=== PATIENT | female | born 1945 | race Caucasian/White ===

== ENCOUNTER 2017-07-01 19:15 | Observation (INO) | payer BC ==
[~2017-07-01] VITALS: Ht 154.9 cm; Wt 55.9 kg
[~2017-07-01 19:15] MED LIST: ALBUAER19 INH; ASTN; FLUT0.0529 NAE; IRBE75TA2 PO; MOME220A3 INH; PANT1TAB3 PO
[2017-07-01] MEDS ORDERED: ONDANSETRON 8 MG/54 ML D5W IV STA (19:49)
[2017-07-01] MEDS ORDERED: SODIUM CHLORIDE 0.9% 1000ML 1,000 ML IV STA (19:49)
[2017-07-01] MEDS ORDERED: ALBU18002 INH (19:55)
[2017-07-01] MEDS ORDERED: IRBE1TAB50 PO (19:55)
[2017-07-01] MEDS ORDERED: PANT40TA2 PO (19:55)
[2017-07-01] MEDS ORDERED: ASMIN/30 INH (19:55)
[2017-07-01] MEDS ORDERED: FLNIN/ NAE (19:55)
[2017-07-01] MEDS ORDERED: MoRPHine SULFATE 4 MG/ML 1 ML CARP\\VIAL IV PRN (20:00)
[2017-07-01] MEDS ORDERED: ONDANSETRON INJ 8 MG in DEXTROSE 5% 50ML 50 ML IV STA (20:01)
[2017-07-01 20:04] LABS: BASO % 0.6 %; BASO ABS # 0.04 K/uL (0-0.2); EOS % 1.2 %; EOS ABS # 0.08 K/uL (0-0.5); HEMATOCRIT 39.4 % (37-47); HEMOGLOBIN 13.7 g/dL (12.0-16.0); IG# 0.02 K/uL (0.00-0.02); LYMPH % 24.8 %; LYMPH ABS # 1.71 K/uL (1.2-3.4); MEAN CELL VOLUME 91.4 fL (80-100); MEAN CORPUSCULAR HEMOGLOBIN 31.8 pg (25-34); MEAN CORPUSCULAR HGB CONC 34.8 g/dl (32-36); MEAN PLATELET VOLUME 10.6 fL (7.4-10.4); MONO ABS # 0.62 K/uL (0.11-0.59); NEUT % 64.1 %; NEUT ABS # 4.43 K/uL (1.4-6.5); PLATELET COUNT 263 K/uL (130-400); RED CELL DISTRIBUTION WIDTH CV 12.7 % (11.5-14.5); RED CELL DISTRIBUTION WIDTH SD 42.8 fL (36.4-46.3)
[2017-07-01] MEDS ORDERED: ONDANSETRON INJ 2 MG/ML 2 ML VIAL ONE (20:12)
--- NOTE | 2017-07-01 20:36 | DIAGNOSTIC IMAGING REPORT ---
CT SCAN OF THE BRAIN WITHOUT IV CONTRAST CLINICAL HISTORY: Change in mental status. COMPARISON STUDY: No priors. TECHNIQUE: Unenhanced axial CT scan of the brain is performed from the vertex to the skull base. A dose lowering technique was utilized adhering to the principles of ALARA. CT DOSE: 537.48 mGy.cm FINDINGS: Brain parenchyma: There are age-related involutional changes noting mild subcortical and periventricular microangiopathic change. There is no hemorrhage, mass effect, or evidence of acute territorial ischemia by CT criteria. Ritchie-white matter is preserved. No extra-axial fluid collection is seen. Ventricles, sulci, cisterns: Prominent secondary to involutional change. Cavum septum pellucidum is incidentally noted. Intracranial vasculature: There is atherosclerotic calcification of the cavernous carotid arteries. Foci of gas within the region of the cavernous sinuses are likely related to IV placement. Calvarium: Unremarkable. Sinuses and mastoids: The visualized paranasal sinuses are clear. The mastoid air cells are well pneumatized. Orbits: The bony orbits are grossly intact. IMPRESSION: There is no hemorrhage, mass effect, or evidence of acute territorial ischemia by CT criteria. Electronically signed by: Chris Irene M.D. 07/01/2017 8:35 PM Dictated Date/Time: 07/01/2017 8:33 PM
[2017-07-01 20:42] LABS: ALBUMIN 3.8 gm/dl (3.4-5.0); ALKALINE PHOSPHATASE 64 U/L (45-117); ALT/SGPT 22 U/L (12-78); BLOOD UREA NITROGEN 13 mg/dl (7-18); CALCIUM 8.5 mg/dl (8.5-10.1); CARBON DIOXIDE 19 mmol/L (21-32); CKMB 2.6 ng/ml (0.5-3.6); CREATININE 0.71 mg/dl (0.60-1.20); GLUCOSE 132 mg/dl (70-99); LIPASE 105 U/L (73-393); SODIUM 129 mmol/L (136-145); TOTAL PROTEIN 7.4 gm/dl (6.4-8.2)
[2017-07-01] MEDS ORDERED: PROCHLORPERAZINE 5 MG/ML 2 ML VIAL IV STA (20:48)
--- NOTE | 2017-07-01 20:48 | DIAGNOSTIC IMAGING REPORT ---
SINGLE VIEW CHEST CLINICAL HISTORY: Weakness. Change in mental status. FINDINGS: An AP, portable, upright chest radiograph is obtained. No prior studies are available for comparison at the time of dictation. The examination is degraded by portable technique and patient rotation. The heart is top normal for projection. The mediastinal contour is within normal limits. There is minimal bibasilar atelectasis. The lungs and pleural spaces are otherwise clear. No pneumothorax is seen. The skeletal structures are osteopenic. There is mild thoracic scoliosis. There are healed bilateral rib fractures. IMPRESSION: No acute cardiopulmonary abnormality. Electronically signed by: Chris Irene M.D. 07/01/2017 8:47 PM Dictated Date/Time: 07/01/2017 8:46 PM
[2017-07-01 20:53] LABS: INFLUENZA B ANTIGEN Neg for Influ B (NEG)
[2017-07-01] MEDS ORDERED: LORAZEPAM 2 MG/ML 1 ML VIAL IV STA (21:30)
[2017-07-01 21:41] LABS: INR 1.1 (0.9-1.1); PTT PATIENT 26.8 SECONDS (21.0-31.0)
[2017-07-01] MEDS ORDERED: ALUMINUM/MAGNESIUM/SIMETH (MAALOX MAX) 30 ML UDC PO PRN (21:45)
[2017-07-01] MEDS ORDERED: MAGNESIUM HYDROXIDE SUSP 30 ML UDC PO PRN (21:45)
[2017-07-01] MEDS ORDERED: FLUTICASONE PROPIONATE NA SPR 16 GM BTL NAE PRN (21:45)
[2017-07-01] MEDS ORDERED: POLYETHYLENE (MIRALAX) 17 GM PACK PO PRN (21:45)
[2017-07-01] MEDS ORDERED: ACETAMINOPHEN 325 MG TAB PO PRN (21:45)
[2017-07-01] MEDS ORDERED: SODIUM CHLORIDE 0.9% 1000ML 1,000 ML IV SCH (21:45)
[2017-07-01] MEDS ORDERED: ONDANSETRON INJ 2 MG/ML 2 ML VIAL IV PRN (21:45)
[2017-07-01] MEDS ORDERED: ALBUTEROL HFA 8 GM INHALER INH PRN (22:00)
[2017-07-01 22:11] LABS: POTASSIUM 3.3 mmol/L (3.5-5.1)
[2017-07-01] MEDS ORDERED: METOCLOPRAMIDE HCL INJ 5 MG/ML 2 ML VIAL IV. PRN (22:15)
--- NOTE | 2017-07-01 22:25 | History and Physical ---
History & Physical Date & Time of Service: Jul 01, 2017 at 22:09 Chief Complaint: Nausea Primary Care Physician: No Doctor, Assigned History of Present Illness Source: patient, family 71 y/o F Hx HTN, asthma, allergic dermatitis. Pt developed diarrhea which has persisted for 2 days. This evening she described either lower chest or epigastric tightness followed by nausea and several episodes of vomiting. She also describes a shaky feeling although she was not visibly rigorous or febrile. Her last meal was deep fried vegetables at a bar the previous evening. She does not have any CP at the time of evaluation for admission. She denies any SOB or fevers. Past Medical/Surgical History Medical Problems: (1) Hypertension Status: Chronic Family History Patient reports no known family medical history. Father owing to COPD Social History Smoking Status: Never Smoker Marital Status: Occupational Status: employed Allergies Coded Allergies: Amoxicillin (Verified Allergy, Unknown, Rash, 07/20/15) Reported by PT. Clavulanic Acid (Verified Allergy, Unknown, Rash, 07/20/15) Reported by PT. Home Medications Scheduled Irbesartan (Irbesartan), 300 MG PO DAILY Mometasone Furoate (Asmanex Twisthaler 30 Me), 1 INHA INH QPM Pantoprazole (Pantoprazole Sodium), 40 MG PO DAILY Scheduled PRN Albuterol Sulfate (Proair Respiclick), 2 PUFFS INH Q6H PRN for SOB/Wheezing Fluticasone Propionate (Fluticasone Propionate), 2 SPRAYS ALFREDITO DAILY PRN for Allergy Symptoms Review of Systems Constitutional: + chills, + problem reported ("shakiness"), No fever, No sweats Eyes: No worsening of vision ENT: No hearing loss, No nasal symptoms Respiratory: No cough, No sputum, No wheezing Cardiovascular: + chest pain (CGest or epigastric discomfort), No orthopnea, No PND Abdomen: + pain (epigastric), + nausea, + vomiting, + diarrhea Musculoskeletal: No joint pain Genitourinary - Female: No dysuria, No urinary frequency, No urinary urgency Neurologic: + weakness, No memory loss, No paralysis Psychiatric: No depression symptoms Endocrine: + fatigue Hematologic / Lymphatic: No abnormal bleeding/bruising Integumentary: + rash (Dermatitis over shoulders/upper chest - present for 2 weeks) Allergic / Immunologic: + environmental allergies Physical Exam Vital Signs Date Time Temp Pulse Resp B/P (MAP) Pulse Ox O2 Delivery O2 Flow Rate FiO2 07/01/17 21:51 Nasal Cannula 2.0 07/01/17 21:08 36.4 78 18 155/91 100 Room Air 07/01/17 19:42 81 07/01/17 19:30 36.4 91 18 178/93 Nasal Cannula 2.0 100 General Appearance: WD/WN, no apparent distress Head: normocephalic Eyes: normal inspection ENT: normal ENT inspection, pharynx normal Neck: supple, no JVD Respiratory/Chest: chest non-tender, lungs clear, normal breath sounds Cardiovascular: regular rate, rhythm, no edema, no gallop Abdomen/GI: normal bowel sounds, non tender, soft Back: normal inspection Extremities/Musculoskelatal: normal inspection, no calf tenderness, normal capillary refill Neurologic/Psych: medical assistant II-XII nml as tested, no motor/sensory deficits, alert, oriented x 3 Skin: normal color, warm/dry, no rash Diagnostics Laboratory Results Results Past 24 Hours Test 07/01/17 19:39 07/01/17 19:40 07/01/17 20:06 07/01/17 20:45 Range/Units Bedside Troponin I < 0.030 0-0.045 ng/ml White Blood Count 6.90 4.8-10.8 K/uL Red Blood Count 4.31 4.2-5.4 M/uL Hemoglobin 13.7 12.0-16.0 g/dL Hematocrit 39.4 37-47 % Mean Corpuscular Volume 91.4 80-100 fL Mean Corpuscular Hemoglobin 31.8 25-34 pg Mean Corpuscular Hemoglobin Concent 34.8 32-36 g/dl Platelet Count 263 130-400 K/uL Mean Platelet Volume 10.6 7.4-10.4 fL Neutrophils (%) (Auto) 64.1 % Lymphocytes (%) (Auto) 24.8 % Monocytes (%) (Auto) 9.0 % Eosinophils (%) (Auto) 1.2 % Basophils (%) (Auto) 0.6 % Neutrophils # (Auto) 4.43 1.4-6.5 K/uL Lymphocytes # (Auto) 1.71 1.2-3.4 K/uL Monocytes # (Auto) 0.62 0.11-0.59 K/uL Eosinophils # (Auto) 0.08 0-0.5 K/uL Basophils # (Auto) 0.04 0-0.2 K/uL RDW Standard Deviation 42.8 36.4-46.3 fL RDW Coefficient of Variation 12.7 11.5-14.5 % Immature Granulocyte % (Auto) 0.3 % Immature Granulocyte # (Auto) 0.02 0.00-0.02 K/uL Sodium Level 129 136-145 mmol/L Potassium Level 3.5-5.1 mmol/L Chloride Level 98 98-107 mmol/L Carbon Dioxide Level 19 21-32 mmol/L Anion Gap 12.0 3-11 mmol/L Blood Urea Nitrogen 13 7-18 mg/dl Creatinine 0.71 0.60-1.20 mg/dl Est Creatinine Clear Calc Drug Dose 60.6 ml/min Estimated GFR () 100.0 Estimated GFR (Non- 86.3 BUN/Creatinine Ratio 17.8 10-20 Random Glucose 132 70-99 mg/dl Calcium Level 8.5 8.5-10.1 mg/dl Magnesium Level 1.8-2.4 mg/dl Total Bilirubin 1.2 0.2-1 mg/dl Direct Bilirubin 0-0.2 mg/dl Aspartate Amino Transf (AST/SGOT) 15-37 U/L Alanine Aminotransferase (ALT/SGPT) 22 12-78 U/L Alkaline Phosphatase 64 45-117 U/L Total Creatine Kinase 26-192 U/L Creatine Kinase MB 2.6 0.5-3.6 ng/ml Creatine Kinase MB Ratio 0-3.0 Troponin I < 0.015 0-0.045 ng/ml Total Protein 7.4 6.4-8.2 gm/dl Albumin 3.8 3.4-5.0 gm/dl Lipase 105 73-393 U/L Thyroid Stimulating Hormone (TSH) 1.450 0.300-4.500 uIu/ml Influenza Type A Antigen Neg for Influ A NEG Influenza Type B Antigen Neg for Influ B NEG Urine Color YELLOW Urine Appearance CLEAR CLEAR Urine pH 8.0 4.5-7.5 Urine Specific [place] 1.012 1.000-1.030 Urine Protein NEG NEG Urine Glucose (UA) NEG NEG Urine Ketones TRACE NEG Urine Occult Blood NEG NEG Urine Nitrite NEG NEG Urine Bilirubin NEG NEG Urine Urobilinogen NEG NEG Urine Leukocyte Esterase NEG NEG Urine WBC (Auto) 0 0-5 /hpf Urine RBC (Auto) 0-4 0-4 /hpf Urine Hyaline Casts (Auto) 0 0-5 /lpf Urine Epithelial Cells (Auto) 5-10 0-5 /lpf Urine Bacteria (Auto) NEG NEG Test 07/01/17 20:56 Range/Units Prothrombin Time 12.0 9.0-12.0 SECONDS Prothromb Time International Ratio 1.1 0.9-1.1 Activated Partial Thromboplast Time 26.8 21.0-31.0 SECONDS Partial Thromboplastin Ratio 1.0 Microbiology Results 07/01/17 C.difficile Toxin B Gene (PCR) - Final, Complete No C. difficile toxin B gene detected EKG Sinus , prolonged QT , no evidence of ischemia Impression Assessment and Plan 71 y/o F Hx HTN, asthma, allergic dermatitis. Pt developed diarrhea which has persisted for 2 days. This evening she described either lower chest or epigastric tightness followed by nausea and several episodes of vomiting. She also describes a shaky feeling although she was not visibly rigorous or febrile. Her last meal was deep fried vegetables at a bar the previous evening. She does not have any CP at the time of evaluation for admission. She denies any SOB or fevers. 1) Intractable nausea and vomiting - pt placed on IVF with PRN antiemetics. This is more likely enteritis rather than cardiac related. She has been assigned to telemetry regardless. 2) CP or epigastric pain - she does not have significant risk factors for an MN - we will obtain serial troponins but would hold off on empirical ASA and Statins based on current clinical assessment. 3) Hyponatremia - related to diarrhea and vomiting - receiving fluids and will trend BMP 4) QT prolongation - we do not have full BMP results on admission. She is receiving a gram of Mg as she received antiemetics in the ER and K is placed in her IVF - we will correct her electrolytes as needed and monitor on telemetry. EKG will be repeated to determine if issue has corrected or if she needs eventual cardio follow-up 5) Asthma - cont inhaler as prescribed 6) Rash - allergic dermatitis - is following with her MD - mild and has not worsened Full code - SCDs until; vomiting/retching resolves - total time for this admit including review of labs, meds, EKG, records - discussion with pt and ER attending - 35 min Level of Care Telemetry Resuscitation Status FULL RESUSCITATION VTE Prophylaxis VTE Risk Assessment Done? Y/N: Yes Risk Level: Low Given or contraindicated: SCD's
[2017-07-01] MEDS ORDERED: IV FLUIDS COMPLETED PRN (23:30)
[2017-07-02 00:15] VITALS: BP 151/85; PULSE 76; TEMP 36.8; O2SAT 96; Ht 154.9 cm; Wt 55.9 kg
--- NOTE | 2017-07-02 00:37 | EMERGENCY ROOM VISIT NOTE ---
History Report prepared by Isabel: Marisa Fontanez Under the Supervision of: Dr. Remberto Holt D.O. First contact with patient: 19:42 Chief Complaint: SYNCOPE Stated Complaint: NAUSEA Nursing Triage Summary: pt c/o n/v/d for past week. states, I feel like I am going to pass out." History of Present Illness The patient is a 71 year old female who presents to the Emergency Room with complaints of an episode of syncope starting prior to arrival. The patient states that she has had a cough and congestion for a week. She reports that she started getting a headache yesterday that she has not been able to get rid of. She states that she has had diarrhea for two days. The patient reports that a few hours ago she started to become very nauseous and get a pain in the left side of her neck. She states that as her nausea increased, she became short of breath. She notes that at this time she called the ambulance. She states that on the way over she started vomiting and feeling like she is going pass out. She complains of feeling lightheaded and being very shaky. The patient denies loss of consciousness, abdominal pain, being around anyone who is sick, and recent antibiotic use. Source of History: patient Onset: prior to arrival Position: other (global) Quality: other (global) Timing: other (episode) Associated Symptoms: + headache, + cough, + neck pain, + SOB, + nausea, + vomiting, + diarrhea, No LOC, No abdominal pain Note: The patient complains of congestion, being lightheaded, and being shaky. Review of Systems See HPI for pertinent positives & negatives. A total of 10 systems reviewed and were otherwise negative. Past Medical & Surgical Medical Problems: (1) Hypertension (2) Hyponatremia (3) Intractable vomiting Family History Patient reports no known family medical history. Social History Smoking Status: Never Smoker Marital Status: Housing Status: lives with family Occupation Status: employed Current/Historical Medications Scheduled Irbesartan (Irbesartan), 300 MG PO DAILY Mometasone Furoate (Asmanex Twisthaler 30 Me), 1 INHA INH QPM Pantoprazole (Pantoprazole Sodium), 40 MG PO DAILY Scheduled PRN Albuterol Sulfate (Proair Respiclick), 2 PUFFS INH Q6H PRN for SOB/Wheezing Fluticasone Propionate (Fluticasone Propionate), 2 SPRAYS ALFREDITO DAILY PRN for Allergy Symptoms Allergies Coded Allergies: Amoxicillin (Verified Allergy, Unknown, Rash, 07/20/15) Reported by PT. Clavulanic Acid (Verified Allergy, Unknown, Rash, 07/20/15) Reported by PT. Physical Exam Vital Signs Date Time Temp Pulse Resp B/P (MAP) Pulse Ox O2 Delivery O2 Flow Rate FiO2 07/01/17 21:51 Nasal Cannula 2.0 07/01/17 21:08 36.4 78 18 155/91 100 Room Air 07/01/17 19:42 81 07/01/17 19:30 36.4 91 18 178/93 Nasal Cannula 2.0 100 Physical Exam CONSTITUTIONAL/VITAL SIGNS: Reviewed / noted above. GENERAL: Non-toxic in appearance. INTEGUMENTARY: Warm, dry, and [place]. HEAD: Normocephalic. EYES: without scleral icterus or trauma. No photophobia. ENT/OROPHARYNX: clear and moist. LYMPHADENOPATHY/NECK: Is supple without lymphadenopathy or meningismus. RESPIRATORY: Lungs clear and equal. CARDIOVASCULAR: Regular rate and rhythm. GI/ABDOMEN: Soft and nontender. No organomegaly or pulsatile mass. No rebound or guarding. Normal bowel sounds. EXTREMITIES: Warm and well perfused. BACK: No CVA tenderness. NEUROLOGICAL: Intact without focal deficits. PSYCHIATRIC: normal affect. MUSCULOSKELETAL: Normally developed with good muscle tone. Medical Decision & Procedures ER Provider Diagnostic Interpretation: Radiology results as stated below per my review and radiologist interpretation: SINGLE VIEW CHEST CLINICAL HISTORY: Weakness. Change in mental status. FINDINGS: An AP, portable, upright chest radiograph is obtained. No prior studies are available for comparison at the time of dictation. The examination is degraded by portable technique and patient rotation. The heart is top normal for projection. The mediastinal contour is within normal limits. There is minimal bibasilar atelectasis. The lungs and pleural spaces are otherwise clear. No pneumothorax is seen. The skeletal structures are osteopenic. There is mild thoracic scoliosis. There are healed bilateral rib fractures. IMPRESSION: No acute cardiopulmonary abnormality. Electronically signed by: Chris Irene M.D. 07/01/2017 8:47 PM Dictated Date/Time: 07/01/2017 8:[address] SCAN OF THE BRAIN WITHOUT IV CONTRAST CLINICAL HISTORY: Change in mental status. COMPARISON STUDY: No priors. TECHNIQUE: Unenhanced axial CT scan of the brain is performed from the vertex to the skull base. A dose lowering technique was utilized adhering to the principles of ALARA. CT DOSE: 537.48 mGy.cm FINDINGS: Brain parenchyma: There are age-related involutional changes noting mild subcortical and periventricular microangiopathic change. There is no hemorrhage, mass effect, or evidence of acute territorial ischemia by CT criteria. Ritchie-white matter is preserved. No extra-axial fluid collection is seen. Ventricles, sulci, cisterns: Prominent secondary to involutional change. Cavum septum pellucidum is incidentally noted. Intracranial vasculature: There is atherosclerotic calcification of the cavernous carotid arteries. Foci of gas within the region of the cavernous sinuses are likely related to IV placement. Calvarium: Unremarkable. Sinuses and mastoids: The visualized paranasal sinuses are clear. The mastoid air cells are well pneumatized. Orbits: The bony orbits are grossly intact. IMPRESSION: There is no hemorrhage, mass effect, or evidence of acute territorial ischemia by CT criteria. Electronically signed by: Chris Irene M.D. 07/01/2017 8:35 PM Dictated Date/Time: 07/01/2017 8:33 PM Laboratory Results 07/01/17 19:40 Red Blood Count 4.31, Mean Corpuscular Volume 91.4, Mean Corpuscular Hemoglobin 31.8, Mean Corpuscular Hemoglobin Concent 34.8, Mean Platelet Volume 10.6, Neutrophils (%) (Auto) 64.1, Lymphocytes (%) (Auto) 24.8, Monocytes (%) (Auto) 9.0, Eosinophils (%) (Auto) 1.2, Basophils (%) (Auto) 0.6, Neutrophils # (Auto) 4.43, Lymphocytes # (Auto) 1.71, Monocytes # (Auto) 0.62, Eosinophils # (Auto) 0.08, Basophils # (Auto) 0.04 07/01/17 19:40 07/01/17 20:56 Test 07/01/17 19:39 07/01/17 19:40 07/01/17 20:06 07/01/17 20:45 Bedside Troponin I < 0.030 ng/ml (0-0.045) White Blood Count 6.90 K/uL (4.8-10.8) Red Blood Count 4.31 M/uL (4.2-5.4) Hemoglobin 13.7 g/dL (12.0-16.0) Hematocrit 39.4 % (37-47) Mean Corpuscular Volume 91.4 fL (80-100) Mean Corpuscular Hemoglobin 31.8 pg (25-34) Mean Corpuscular Hemoglobin Concent 34.8 g/dl (32-36) Platelet Count 263 K/uL (130-400) Mean Platelet Volume 10.6 fL (7.4-10.4) Neutrophils (%) (Auto) 64.1 % Lymphocytes (%) (Auto) 24.8 % Monocytes (%) (Auto) 9.0 % Eosinophils (%) (Auto) 1.2 % Basophils (%) (Auto) 0.6 % Neutrophils # (Auto) 4.43 K/uL (1.4-6.5) Lymphocytes # (Auto) 1.71 K/uL (1.2-3.4) Monocytes # (Auto) 0.62 K/uL (0.11-0.59) Eosinophils # (Auto) 0.08 K/uL (0-0.5) Basophils # (Auto) 0.04 K/uL (0-0.2) RDW Standard Deviation 42.8 fL (36.4-46.3) RDW Coefficient of Variation 12.7 % (11.5-14.5) Immature Granulocyte % (Auto) 0.3 % Immature Granulocyte # (Auto) 0.02 K/uL (0.00-0.02) Anion Gap 12.0 mmol/L (3-11) Est Creatinine Clear Calc Drug Dose 60.6 ml/min Estimated GFR () 100.0 Estimated GFR (Non- 86.3 BUN/Creatinine Ratio 17.8 (10-20) Calcium Level 8.5 mg/dl (8.5-10.1) Total Bilirubin 1.2 mg/dl (0.2-1) Alanine Aminotransferase (ALT/SGPT) 22 U/L (12-78) Alkaline Phosphatase 64 U/L (45-117) Creatine Kinase MB 2.6 ng/ml (0.5-3.6) Creatine Kinase MB Ratio (0-3.0) Total Protein 7.4 gm/dl (6.4-8.2) Albumin 3.8 gm/dl (3.4-5.0) Lipase 105 U/L (73-393) Thyroid Stimulating Hormone (TSH) 1.450 uIu/ml (0.300-4.500) Influenza Type A Antigen Neg for Influ A (NEG) Influenza Type B Antigen Neg for Influ B (NEG) Urine Color YELLOW Urine Appearance CLEAR (CLEAR) Urine pH 8.0 (4.5-7.5) Urine Specific [place] 1.012 (1.000-1.030) Urine Protein NEG (NEG) Urine Glucose (UA) NEG (NEG) Urine Ketones TRACE (NEG) Urine Occult Blood NEG (NEG) Urine Nitrite NEG (NEG) Urine Bilirubin NEG (NEG) Urine Urobilinogen NEG (NEG) Urine Leukocyte Esterase NEG (NEG) Urine WBC (Auto) 0 /hpf (0-5) Urine RBC (Auto) 0-4 /hpf (0-4) Urine Hyaline Casts (Auto) 0 /lpf (0-5) Urine Epithelial Cells (Auto) 5-10 /lpf (0-5) Urine Bacteria (Auto) NEG (NEG) Test 07/01/17 20:56 Prothrombin Time 12.0 SECONDS (9.0-12.0) Prothromb Time International Ratio 1.1 (0.9-1.1) Activated Partial Thromboplast Time 26.8 SECONDS (21.0-31.0) Partial Thromboplastin Ratio 1.0 Magnesium Level 1.7 mg/dl (1.8-2.4) Direct Bilirubin 0.2 mg/dl (0-0.2) Aspartate Amino Transf (AST/SGOT) 21 U/L (15-37) Total Creatine Kinase 83 U/L (26-192) Date/Time Source Procedure Growth Status 07/01/17 20:07 Stool C.difficile Toxin B Gene (PCR) - Final No C. difficile toxin B gene detected Complete Laboratory results as stated above per my review. Medications Administered Medications (Trade) Dose Ordered Sig/Haris Route Start Time Stop Time Status Last Admin Dose Admin Sodium Chloride 1,000 ml @ 999 mls/hr Q1H1M STAT IV 07/01/17 19:49 07/01/17 22:26 DC 07/01/17 20:16 999 MLS/HR Morphine Sulfate (MoRPHine SULFATE INJ) 4 mg Q1H PRN IV 07/01/17 20:00 07/01/17 22:29 DC 07/01/17 20:17 4 MG Ondansetron HCl (Zofran Inj) 8 mg STK-MED ONCE .ROUTE 07/01/17 20:12 07/01/17 20:13 DC 07/01/17 20:12 8 MG Prochlorperazine Edisylate (Compazine Inj) 10 mg NOW STAT IV 07/01/17 20:48 07/01/17 20:49 DC 07/01/17 21:01 10 MG Lorazepam (Ativan Inj) 1 mg NOW STAT IV 07/01/17 21:30 07/01/17 21:31 DC 07/01/17 21:44 1 MG ECG Indication: nausea Rate (beats per minute): 79 Rhythm: normal sinus Findings: no acute ischemic change, no ectopy ED Course 1942: Previous medical records were reviewed. The patient was evaluated in room A2. A complete history and physical examination was performed. 1948: Ordered NSS 1000 ml @ 999 mls/hr IV. 1999: Ordered Morphine Sulfate 4 mg PRN IV pain. 2000: Ordered Ondansetron HCl 8 mg/Dextrose 54 ml @ 216 mls/hr IV. 2039: I reevaluated the patient and she is still nauseous. 2047: Ordered Compazine Inj 10 mg IV. 2125: I reevaluated the patient and she is still feeling ill and nauseated. 2129: Ordered Ativan Inj 1 mg IV. 2142: Discussed the patient's case with Dr. Melton. The patient will be evaluated for further treatment and disposition. 2143: Patient's electrocardiogram interpreted by me. Medical Decision Differential includes acute coronary syndrome, myocardial infarction, CVA, TIA, anemia, infection, pneumonia, UTI, pyelonephritis, poor nutrition, dehydration, electrolyte disturbance,hypoglycemia. This is a 71-year-old female who presents to the ED with a chief complaint of having cough and congestion for the past week. She has had a headache for the past 24 hours in addition to some nausea. She has had vomiting. She has been unable to keep anything down. She is also reports diarrhea for 2 days. Initial vital signs reveal hypertension. Her physical exam was relatively unremarkable. She does appear somewhat ill he complains of nausea and generalized malaise. A twelve-lead EKG did not show acute ischemic process. Blood work including a CBC and chemistry panel revealed hyponatremia as well as hypokalemia and hypomagnesemia. Troponin was negative. Chest x-ray did not show acute process per CT scan of the brain did not show acute process. Urine did not show infection, flu so was negative. The patient was treated with several antinausea medications IV as well as IV Ativan. She was given IV fluids. She continued having nausea and the sensation of vomiting despite these treatments. The patient was not feeling well and because the intractable symptoms, the patient was seen by the hospitalist for further inpatient evaluation and care. Medication Reconcilliation Current Medication List: was personally reviewed by me Blood Pressure Screening Patient's blood pressure: Elevated blood pressure Blood pressure disposition: Elevated BP felt to be situational Consults Time Called: 2139 Consulting Physician: Dr. Melton- [facility] [place] Returned Call: 2142 Discussed the patient's case with Dr. Metlon. The patient will be evaluated for further treatment and disposition. Impression Primary Impression: Weak Additional Impressions: Hyponatremia Hypokalemia Intractable vomiting Scribe Attestation The scribe's documentation has been prepared under my direction and personally reviewed by me in its entirety. I confirm that the note above accurately reflects all work, treatment, procedures, and medical decision making performed by me. Departure Information Dispostion Being Evaluated By Hospitalist Referrals Fredrick De Jesus M.D. (PCP) Patient Instructions My [facility] Problem Qualifiers
[2017-07-02] MEDS: NSS + 20MEQ KCL 1000ML 1,000 ML IV SCH ×2 (01:58→09:02)
[2017-07-02] MEDS: POTASSIUM CHLR 10 MEQ / WTR 10 MEQ in PREMIXED WATER 100 ML IV SCH ×2 (01:59→04:01)
[2017-07-02] MEDS ORDERED: MAGNESIUM SULFATE 1GM / D5W 1 GM in PREMIXED IN D5W 100 ML IV SCH (02:00)
[2017-07-02 05:02] VITALS: BP 146/81; PULSE 74; TEMP 36.4; O2SAT 95
[2017-07-02 07:55] VITALS: BP 147/79; PULSE 73; TEMP 36.9; O2SAT 98
[2017-07-02] MEDS ORDERED: PANTOprazole SOD 40 MG TAB PO SCH (09:00)
[2017-07-02 09:12] LABS: HEMATOCRIT 39.1 % (37-47); HEMOGLOBIN 13.4 g/dL (12.0-16.0); MEAN CELL VOLUME 92.9 fL (80-100); MEAN CORPUSCULAR HEMOGLOBIN 31.8 pg (25-34); MEAN CORPUSCULAR HGB CONC 34.3 g/dl (32-36); MEAN PLATELET VOLUME 10.3 fL (7.4-10.4); PLATELET COUNT 259 K/uL (130-400); RED CELL DISTRIBUTION WIDTH CV 12.9 % (11.5-14.5); RED CELL DISTRIBUTION WIDTH SD 43.6 fL (36.4-46.3); WHITE BLOOD COUNT 8.41 K/uL (4.8-10.8)
[2017-07-02 09:25] LABS: CALCIUM 8.1 mg/dl (8.5-10.1); CREATININE 0.46 mg/dl (0.60-1.20); POTASSIUM 4.7 mmol/L (3.5-5.1)
--- NOTE | 2017-07-02 09:48 | Discharge Instructions ---
Discharge Instructions Date of Service Jul 02, 2017. Admission Reason for Admission: Hyponatremia, Intractable Vomiting Discharge Discharge Diagnosis / Problem: Enteritis (Intestinal Infection) and Dehydration Discharge Goals Goal(s): Decrease discomfort, Improve function, Increase independence Activity Recommendations Activity Limitations: resume your previous activity . Instructions / Follow-Up Instructions / Follow-Up Chest/Epigastric Pain and Intractable Nausea/Vomiting: Possible Gastritis ( Stomach Inflammation) or a GI Bug - Your symptoms appear to be related to GI issues and dehydration. Your cardiac enzymes were obtained and negative. - Recommend to advance your diet as tolerated. Would avoid foods that can cause irritation such as acidic and fatty. Would also avoid alcohol for the next few days - Recommend a bland diet at least initially and can then advance to a diet you normally consume. - Continue to stay hydrated. If you do have more diarrhea you can incorporate Gatorade or drinks that have electrolytes. - Will provide a prescription for Ranitidine 150 mg twice a day for a week to help reduce the stomach acids even more during recovery Current Hospital Diet Patient's current hospital diet: Clear Liquid Diet, Regular Diet Discharge Diet Recommended Diet: Regular Diet Pending Studies Studies pending at discharge: no Medical Emergencies . Who to Call and When: Medical Emergencies: If at any time you feel your situation is an emergency, please call 911 immediately. . Non-Emergent Contact Non-Emergency issues call your: Primary Care Provider Call Non-Emergent contact if: you have a fever, your pain is concerning you, you have any medication questions . . "Provider Documentation" section prepared by Andree Grant. . VTE Core Measure Inpt VTE Proph given/why not?: SCD's
[2017-07-02 11:58] VITALS: BP 125/68; PULSE 84; TEMP 36.9; O2SAT 91
[2017-07-02] MEDS ORDERED: RANI150T3 PO (15:24)
[2017-07-02 16:02] VITALS: BP 147/50; PULSE 61; TEMP 36.9; O2SAT 95
[2017-07-02 16:07] VITALS: BP 147/50; PULSE 61; TEMP 36.9; O2SAT 95
--- NOTE | 2017-07-02 18:51 | Discharge Summary ---
Discharge Summary Date of Service Jul 02, 2017. Discharge Summary Admission Date: Jul 01, 2017 at 22:08 Discharge Date: Jul 02, 2017 Discharge Disposition: Home Principal Diagnosis: Gastritis/Enteritis with Hyponatremia/Dehydration Problems/Secondary Diagnoses: 1. HTN 2. Asthma 3. Allergic Dermatitis Procedures: CT SCAN OF THE BRAIN WITHOUT IV CONTRAST FINDINGS: Brain parenchyma: There are age-related involutional changes noting mild subcortical and periventricular microangiopathic change. There is no hemorrhage, mass effect, or evidence of acute territorial ischemia by CT criteria. Ritchie-white matter is preserved. No extra-axial fluid collection is seen. Ventricles, sulci, cisterns: Prominent secondary to involutional change. Cavum septum pellucidum is incidentally noted. Intracranial vasculature: There is atherosclerotic calcification of the cavernous carotid arteries. Foci of gas within the region of the cavernous sinuses are likely related to IV placement. Calvarium: Unremarkable. Sinuses and mastoids: The visualized paranasal sinuses are clear. The mastoid air cells are well pneumatized. Orbits: The bony orbits are grossly intact. IMPRESSION: There is no hemorrhage, mass effect, or evidence of acute territorial ischemia by CT criteria. SINGLE VIEW CHEST FINDINGS: An AP, portable, upright chest radiograph is obtained. No prior studies are available for comparison at the time of dictation. The examination is degraded by portable technique and patient rotation. The heart is top normal for projection. The mediastinal contour is within normal limits. There is minimal bibasilar atelectasis. The lungs and pleural spaces are otherwise clear. No pneumothorax is seen. The skeletal structures are osteopenic. There is mild thoracic scoliosis. There are healed bilateral rib fractures. IMPRESSION: No acute cardiopulmonary abnormality. Medication Reconciliation New Medications: Ranitidine Hcl (Zantac) 150 Mg Tab 1 TAB PO BID for 7 Days, #14 TAB Continued Medications: Albuterol Sulfate (Proair Respiclick) 108 Mcg/Act Aer 2 PUFFS INH Q6H PRN for SOB/Wheezing Fluticasone Propionate (Fluticasone Propionate) 120 Sprays/6000 Mcg Inha 2 SPRAYS ALFREDITO DAILY PRN for Allergy Symptoms Irbesartan (Irbesartan) 300 Mg Tab 300 MG PO DAILY Mometasone Furoate (Asmanex Twisthaler 30 Me) 30 Puff/Inhaler Aerp 1 INHA INH QPM Pantoprazole (Pantoprazole Sodium) 40 Mg Tab 40 MG PO DAILY Discharge Exam Review of Systems: Constitutional: No fever, No chills Respiratory: No cough, No shortness of breath Cardiovascular: No chest pain Abdomen: No pain, No nausea, No vomiting, No diarrhea, No constipation, No GI bleeding Musculoskeletal: No swelling, No calf pain Genitourinary - Female: No dysuria Neurologic: No vertigo, No balance problems Hematologic / Lymphatic: No abnormal bleeding/bruising Physical Exam: General Appearance: WD/WN, no apparent distress Eyes: sclerae normal ENT: hearing grossly normal Neck: supple, no JVD, trachea midline Respiratory/Chest: lungs clear, normal breath sounds, no respiratory distress, no accessory muscle use Cardiovascular: regular rate, rhythm, no gallop, no murmur Abdomen / GI: normal bowel sounds, non tender, soft Extremities: no pedal edema Neurologic/Psychiatric: alert, oriented x 3 Skin: normal color, warm/dry Hospital Course ADMISSION: 71 y/o F Hx HTN, asthma, allergic dermatitis. Pt developed diarrhea which has persisted for 2 days. This evening she described either lower chest or epigastric tightness followed by nausea and several episodes of vomiting. She also describes a shaky feeling although she was not visibly rigorous or febrile. Her last meal was deep fried vegetables at a bar the previous evening. She does not have any CP at the time of evaluation for admission. She denies any SOB or fevers. HOSPITAL COURSE: Ms. Norman was admitted for likely gastritis/enteritis with resultant Hyponatremia from vomiting/diarrhea Intractable Nausea/Vomiting: Enteritis/Gastritis vs Food-Borne: - Treated with IVF and anti-emetics; initiated on clear liquid diet and advanced with tolerance of solids prior to D/C - Will prescribe Ranitidine 150 mg BID x 7 days - no further adjustments made to previously prescribed medications CP vs Epigastric Pain: RESOLVED - Favors GI component - however cardiac enzymes obtained and negative Hyponatremia 2/2 Dehydration - Vomiting/Diarrhea: IMPROVING - Currently at 132 and asymptomatic - tolerating orals and stable for D/C QT Prolongation: RESOLVED - Improved with correction of electrolytes Total Time Spent: Greater than 30 minutes This includes examination of the patient, discharge planning, medication reconciliation, and communication with other providers. Discharge Instructions Please refer to the electronic Patient Visit Report (Discharge Instructions) for additional information. Additional Copies To Fredrick De Jesus M.D.
[2017-07-02] MEDS ORDERED: MOMETASONE FUROATE 14 PUFF/1 INHALER INH SCH (21:00)
== END 2017-07-02 16:55 | disposition home or self-care (01) ==
LOC: EDBD 19:15 → C.EDA 19:17 → C.MED 22:08 → CANRESERV 23:14 → ENRESERV 23:14 → EDBEDREQSVC 23:25 → ENRESERV 23:56
PROVIDERS: ADMIT Internal Medicine; ATTEND Internal Medicine
DX: K29.70 Gastritis, unspecified, without bleeding (principal); K52.9 Noninfective gastroenteritis and colitis, unspecified; E87.1 Hypo-osmolality and hyponatremia; E87.6 Hypokalemia; I10 Essential (primary) hypertension; J45.909 Unspecified asthma, uncomplicated; L23.9 Allergic contact dermatitis, unspecified cause

== ENCOUNTER 2018-06-13 20:07 | Observation (INO) ==
[2018-06-13] MEDS ORDERED: SODIUM CHLORIDE 0.9% 500 ML IV STA (20:41)
[2018-06-13] MEDS ORDERED: ONDANSETRON INJ 2 MG/ML 2 ML VIAL IV STA (20:41)
[2018-06-13] MEDS ORDERED: SODIUM CHLORIDE 0.9% 1000ML 1,000 ML IV ONE (20:46)
[2018-06-13] MEDS ORDERED: KETOROLAC TROMETHAMINE 15 MG/ML VIAL IV STA (20:46)
[2018-06-13] MEDS ORDERED: KETOROLAC TROMETHAMINE 15 MG/ML VIAL ONE (20:46)
[2018-06-13 20:47] LABS: Basophils # (auto) 0.02 K/uL (0-0.2); Basophils % (auto) 0.2 %; Eosinophils # (auto) 0.05 K/uL (0-0.5); Eosinophils % (auto) 0.5 %; Hematocrit (blood only) 41.1 % (37-47); Hemoglobin 14.5 g/dL (12.0-16.0); Immature Granulocytes # (auto) 0.03 K/uL (0.00-0.02); Immature Granulocytes % (auto) 0.3 %; Lymphocytes # (auto) 2.18 K/uL (1.2-3.4); Lymphocytes % (auto) 21.8 %; Mean Corpuscular Hgb Conc 35.3 g/dL (32-36); Mean Corpuscular Volume 91.5 fL (80-100); Mean Platelet Volume 10.5 fL (7.4-10.4); Monocytes # (auto) 0.71 K/uL (0.11-0.59); Monocytes % (auto) 7.1 %; Neutrophils # (auto) 6.99 K/uL (1.4-6.5); Neutrophils % (auto) 70.1 %; Platelet Count 273 K/uL (130-400); RDW Coefficient of Variation 12.3 % (11.5-14.5); RDW Standard Deviation 41.4 fL (36.4-46.3); Red Blood Count 4.49 M/uL (4.2-5.4); White Blood Count 9.98 K/uL (4.8-10.8)
[2018-06-13 20:54] LABS: Alanine Aminotransferase 21 U/L (12-78); Albumin Level 4.2 gm/dl (3.4-5.0); Aspartate Aminotransferase 10 U/L (15-37); BUN Creatinine Ratio 26.8 (10-20); Blood Urea Nitrogen 21 mg/dl (7-18); Calcium 9.3 mg/dl (8.5-10.1); Carbon Dioxide 22 mmol/L (21-32); Chloride 96 mmol/L (98-107); Est GFR (Non-African American) 74.2; Glucose 134 mg/dl (70-99); Potassium 3.2 mmol/L (3.5-5.1); Sodium 129 mmol/L (136-145)
[2018-06-13 20:57] LABS: Albumin Globulin Ratio 1.2 (0.9-2); Alkaline Phosphatase 76 U/L (45-117); Bilirubin,Total 0.9 mg/dl (0.2-1); Globulin 3.4 gm/dl (2.5-4.0); Total Protein 7.6 gm/dl (6.4-8.2)
[2018-06-13] MEDS ORDERED: METOCLOPRAMIDE HCL INJ 5 MG/ML 2 ML VIAL IV STA (20:57)
[2018-06-13] MEDS ORDERED: POTASSIUM CHLORIDE 20 MEQ TABCR PO STA (20:57)
[2018-06-13] MEDS: POTASSIUM CHLORIDE / WTR 10 MEQ/100 ML PLCT IV SCH ×2 (21:03→22:19)
[2018-06-13] MEDS ORDERED: PROCHLORPERAZINE 5 MG in SYRINGE 4 ML IV ONE (21:30)
[2018-06-13] MEDS ORDERED: DiphenhydrAMINE HCL 50 MG/ML VIAL IV STA (21:30)
--- NOTE | 2018-06-13 21:43 | CT Scan Report ---
CT head/brain wo con CLINICAL HISTORY: 72 years-old Female presenting with Pt c/o diffuse emesis. TECHNIQUE: Multidetector CT imaging of the head was performed without the use of intravenous contrast . IV contrast: None. A dose lowering technique was used consistent with the principles of ALARA (as l ow as reasonably achievable). COMPARISON: 07/01/2017. CT DOSE (mGy.cm): The estimated cumulative dose is 537.48 mGy.cm. FINDINGS: [employer] topogram: Unremarkable. Ventricles and sulci normal in size. No hemorrhage. Brain parenchyma normal in appearance with preser benita [place]ton-white differentiation. No acute territorial infarct. No mass effect or midline shift. No ext ra-axial fluid collection. Paranasal sinuses and mastoid air cells clear. Calvarium intact. IMPRESSION: 1. No acute intracranial abnormality. Electronically signed by: Jhoan Gerard M.D. 06/13/2018 9:41 PM
[2018-06-13] MEDS ORDERED: PROCHLORPERAZINE 5 MG/ML 2 ML VIAL ONE (22:13)
--- NOTE | 2018-06-13 22:22 | XRay Report ---
XR abdomen 2V w PA chest CLINICAL HISTORY: 72 years-old Female presenting with Pt c/o diffuse emesis. TECHNIQUE: PA view of the chest and supine and upright views of the abdomen were obtained. COMPARISON: Chest x-ray from 07/01/2017. FINDINGS: Atherosclerosis of the aortic arch. Cardiac silhouette top normal in size. Minimal basilar opacities. No pleural effusion or pneumothorax. Cholecystectomy clips noted. Nonobstructive bowel gas pattern. No gross pneumoperitoneum. Allowing for bowel gas and stool, no calcifications to suggest nephrolithiasis. Degenerative changes of the spine. IMPRESSION: 1. Minimal basilar opacities likely atelectasis. No convincing evidence of acute cardiopulmonary dis ease. 2. No radiographic evidence of acute intra-abdominal pathology. Electronically signed by: Jhoan Gerard M.D. 06/13/2018 10:21 PM
[2018-06-13] MEDS ORDERED: ONDANSETRON HOME PACK 4MG OD TAB PO ONE (22:38)
[2018-06-13] MEDS ORDERED: methylPREDNISolone 125 MG/2 ML VIAL IV STA (22:52)
--- NOTE | 2018-06-14 02:04 | History & Physical Report ---
Date of Service June 14, 2018 Assessment & Plan (1) Gastroenteritis: 1) Intractable nausea and vomiting - pt placed on IVF with PRN antiemetics. Similar admission 06/2017 resolved with conservative measures. 2) Hyponatremia, hypokalemia - related to diarrhea and vomiting - receiving fluids, K - trend BMP 3) HTN, HLD - continue statin and ARB as tolerated - can provide IV sub if unable to tolerate her meds - SBP controlled on admission 4) Asthma - cont inhalers as prescribed - no evidence of exacerbation 4) QT prolongation - we do not have full BMP results on admission. She is receiving a gram of Mg as she received antiemetics in the ER and K is placed in her IVF - we will correct her electrolytes as needed and monitor on telemetry. EKG will be repeated to determine if issue has corrected or if she needs eventual cardio follow-up 6) Rash - allergic dermatitis - is following with her MD - mild and has not worsened Present on Admission?: Yes History of Present Illness Chief Complaint: Intractable nausea and vomiting, hyponatremia Primary Care Provider: Nevin Rajput 72 y/o F Hx HTN, HLD, asthma, allergic dermatitis. Presenting with intractable nausea, vomiting and diarrhea x 1 day. Denies abdominal pain, fevers or rigors. Initial labs are notable for a sodium of 129. The pt was admitted with similar complaints and hyponatremia 07/01. PMH: 1) HTN 2) HLD 3) Asthma 4) Chronic allergic dermatitis 5) Admitted with N/V and hyponatremia 06/2017 Surgical: She has not had any surgery Family: Cannot recall cause of parents' demise Social: Denies smoking or drinking Allergies Allergy/AdvReac Type Severity Reaction Status Date / Time amoxicillin Allergy Unknown Rash Verified 06/13/18 20:50 clavulanic acid Allergy Unknown Rash Verified 06/13/18 20:50 Home Medications Home Medications Medication Instructions Recorded Confirmed Type albuterol sulfate 2 puff INHALATION Q6H PRN 06/13/18 06/13/18 History fluticasone 2 spray INTRANASAL DAILY 06/13/18 06/13/18 History irbesartan 300 mg PO DAILY 06/13/18 06/13/18 History mometasone [Asmanex Twisthaler] 1 inh INHALATION QPM 06/13/18 06/13/18 History pantoprazole 40 mg PO DAILY 06/13/18 06/13/18 History simvastatin 20 mg PO DAILY 06/13/18 06/13/18 History diphenhydramine HCl [Benadryl 25 mg PO Q6H PRN #30 tab 06/14/18 Rx Allergy] metoclopramide HCl 10 mg PO Q6H PRN #10 tab 06/14/18 Rx Past Med/Surg History Medical History Hyperlipidemia Asthma Migraine Hypertension (Chronic) Social History Current Living Situation: Spouse Other Information That Helps Us Care for You: No Feels Safe at Home: Yes Safety Concerns: Feels Safe At This Time Smoking Status: Unknown if ever smoked Hx Alcohol Use: Yes Alcohol type: wine Alcohol Intake Frequency: holidays/ special occasions only Hx Substance Use: No Beliefs That Will Affect Care: None Preferred Language: Peruvian Review of Systems General: Denies fevers, night sweats, weight loss, weight gain ENT: Denies throat pain, nasal congestion Eyes: Denies acute visual impairment, eye pain Cardiovascular: Denies CP, palpitations, PND, orthopnea Respiratory: Denies SOB, productive cough, wheezing GI: NAusea, vomiting, diarrhea as above : Denies dysuria, hesitancy, frequency, hematuria Neuro: Denies headache, lightheadedness, syncope, unilateral weakness, acute loss of balance, memory loss Endocrine: Denies polydypsia, polyuria Heme: Denies unexplained bruising Skin: Denies acute rash or ulcers Physical Exam 2 Vital Signs (Past 24 Hours): Last Vital Signs Pulse 83 06/14/18 01:31 Resp 20 06/14/18 01:31 BP 151/83 H 06/14/18 01:31 Pulse Ox 95 06/14/18 01:31 Physical Exam: General: Thin, elderly F, AAO x 3, no distress ENT: No erythema or exudates, no thrush Eyes: NASREEN, EOMI Head and neck: Normocephalic, atraumatic, No JVD, neck is supple. Chest/heart: Nontender, S1,2, RRR, no murmurs, no gallops Lungs: CTAB, no wheezing or crackles Abdomen: Nontender, nondistended, BS+ Neuro: AAO x 3, speech is clear, no unilateral weakness or loss of sensation, coordination intact Musculoskeletal: No joint inflammation, muscle tenderness, FROM Skin: No acute rashes or ulcers Extremities: No clubbing, cyanosis, edema
[2018-06-14] MEDS ORDERED: ALBUTEROL HFA 8 GM INHALER INH PRN (02:56)
[2018-06-14] MEDS ORDERED: ALUMINUM/MAGNESIUM SUSP 30 ML UDC PO PRN (02:56)
[2018-06-14] MEDS ORDERED: ONDANSETRON INJ 2 MG/ML 2 ML VIAL IV PRN (02:56)
[2018-06-14] MEDS ORDERED: ACETAMINOPHEN 325 MG TAB PO PRN (02:56)
[2018-06-14] MEDS ORDERED: MAGNESIUM SULFATE / D5W 1 GM/100 ML BAG IV ONE (03:30)
[2018-06-14] MEDS: D5NSS + 20MEQ KCL 20 MEQ/1,000 ML BAG IV SCH ×2 (04:43→11:49)
[2018-06-14 07:51] VITALS: PULSE 75; TEMP 98.2; O2SAT 99
[2018-06-14 07:54] LABS: BUN Creatinine Ratio 16.2 (10-20); Calcium 8.3 mg/dl (8.5-10.1); Creatinine Clr Calc Pharmacy 53.3 ml/min; Est GFR (Non-African American) 82.9; Magnesium 2.5 mg/dl (1.8-2.4); Potassium 4.5 mmol/L (3.5-5.1)
[2018-06-14 08:04] LABS: Basophils # (auto) 0.01 K/uL (0-0.2); Basophils % (auto) 0.2 %; Hematocrit (blood only) 40.4 % (37-47); Immature Granulocytes # (auto) 0.01 K/uL (0.00-0.02); Immature Granulocytes % (auto) 0.2 %; Lymphocytes # (auto) 0.62 K/uL (1.2-3.4); Lymphocytes % (auto) 12.5 %; Mean Corpuscular Hgb Conc 34.7 g/dL (32-36); Mean Platelet Volume 10.3 fL (7.4-10.4); Monocytes # (auto) 0.02 K/uL (0.11-0.59); Monocytes % (auto) 0.4 %; Neutrophils # (auto) 4.29 K/uL (1.4-6.5); Neutrophils % (auto) 86.7 %; Platelet Count 254 K/uL (130-400); RDW Coefficient of Variation 12.1 % (11.5-14.5); Red Blood Count 4.39 M/uL (4.2-5.4); White Blood Count 4.95 K/uL (4.8-10.8)
[2018-06-14] MEDS ORDERED: IRBESARTAN 150 MG TAB PO SCH (09:00)
[2018-06-14] MEDS ORDERED: PANTOprazole 40 MG TAB PO SCH (09:00)
[2018-06-14] MEDS ORDERED: SIMVASTATIN 20 MG TAB PO SCH (09:00)
[2018-06-14 15:49] VITALS: BP 144/83
--- NOTE | 2018-06-14 15:53 | Discharge Summary ---
Date of Service June 14, 2018 Admission HPI Per Admitting Provider 72 y/o F Hx HTN, HLD, asthma, allergic dermatitis. Presenting with intractable nausea, vomiting and diarrhea x 1 day. Denies abdominal pain, fevers or rigors. Initial labs are notable for a sodium of 129. The pt was admitted with similar complaints and hyponatremia 07/01. PMH: 1) HTN 2) HLD 3) Asthma 4) Chronic allergic dermatitis 5) Admitted with N/V and hyponatremia 06/2017 Surgical: She has not had any surgery Family: Cannot recall cause of parents' demise Social: Denies smoking or drinking Principal Diagnosis Intractable nausea/vomiting, Hyponatremia Discharge Exam Constitutional WD/WN, vitals as above Eyes PERRL, conjunctivae normal, anicteric sclerae ENMT external ear and nose normal, oropharynx normal Neck trachea midline, no thyromegaly Respiratory normal respiratory effort, lungs clear to auscultation Cardiovascular RRR, no murmur, no edema Gastrointestinal (Abdomen) normal bowel sounds, soft, nontender, no hepatosplenomegaly Musculoskeletal Extremities: extremities normal to inspection; no cyanosis and no clubbing Skin no rashes, warm and dry Neurologic CN's II-XI intact bilaterally, moves all extremities and awake; no focal motor deficits Psychiatric A+Ox3, euthymic affect Discharge Data Allergies Allergy/AdvReac Type Severity Reaction Status Date / Time amoxicillin Allergy Unknown Rash Verified 06/13/18 20:50 clavulanic acid Allergy Unknown Rash Verified 06/13/18 20:50 Consultations None Procedures Performed None Ordered Studies 06/13/18 20:57 CT head/brain wo con Stat Abdomen xray/CXR Hospital Course (1) Intractable vomiting: This pt is a 72 yo female with ah/o HTN, HL. migraine with aura, asthma, allergies, who presents to the ER with intractable nausea, vomiting, and hyponatremia. SHe reports this is the third occurrence of this exact presentation in the last year. It always startes off with a sensation of mild dizziness in the morning, followed by a half day of just "not feeling right," and then a mild frontal headache radiating to the occiput, then intractable nausea and vomiting. 1) Intractable nausea and vomiting with headache--> given h/o migraine with aura in premenopausal years, I suspect this is a presentation now of migraine headache that is different from her previous 30 years ago. This is the 3rd recurrence in the last year. She is not taking any supplements or hormone therapy, she does admit to rarely ever getting more than 4-5 hours of sleep each night. SHe is up to date on her [employer] PIL[employer] ESC[employer] care and mammograms. No reason to suggest she is having recurrence of migraines (which were previously hormonally related) due to a [employer] issue although could be further explored with her PCP/[employer] as an outpatient. CT Head here negative. With the dizziness, this could be a subtype of basilar migraine perhaps All symptoms now resolved with IVFs, IV Reglan and Benadryl, Zofran, IV steroids x 1, and IV Toradol. -suggest getting more sleep, eating regular meals, avoiding triggers for migraines -gave Rx for Reglan and Benadryl to take prn for abortive therapy in the future , would avoid triptans given possibility of basilar migraine -should have outpt referral/consultation with Neuro for their opinion -consider Elavil for prophylaxis given insomnia and would help with both migraine and sleep issue -consider outpt brain MRI if Neuro/PCP think necessary although CN exam here is normal There is mention of prolonged QT in admission H&P but it appears normal to me on ECG, no further f/u needed (2) Hyponatremia: Na 129 on admission and due to dehydration from vomiting resolved and was 135 a few hours later after IVFs -no further workup needed, treat migraine as above (3) Hypertension: stable -continue avapro (4) Acute hypokalemia: secondary to GI losses -replaced in IVFs and resolved (5) Migraine: as above (6) Asthma: no acute issues -continue home inhalers (7) Hyperlipidemia: continue statin Dispo-stable for dc to home in excellent condition Total Time Total Time Spent Total Time Spent (In Minutes): >30 min Total Time Includes: Examination of the Patient, Discharge Planning and Medication Reconciliation Discharge Plan Discharge Items Patient Disposition: Home - Self-Care Reason For Visit: INTRACTABLE N/V, HYPONATREMIA Discharge Diagnosis: Intractable nausea/vomiting, Hyponatremia Condition: Good Discharge Goals: Decrease discomfort, Diagnostic testing, Improve disease control, Learn about illness and Therapeutic intervention Activity: Resume your previous activity Lifting: Gradually increase as tolerated Bathing: No limitations Sexual Activity: When tolerated Exercise/Sports: Gradually increase as tolerated Driving/Machine Use: No limitations Non-emergency contact: Primary Care Provider Call non-emergency contact if: you have any medication questions, your symptoms worsen, your pain is not controlled, your pain is worsening, your pain is unusual for you, your pain is concerning for you and your temperature is above 100.5 Follow-up/Referrals: Nevin Rajput M.D. [Primary Care Provider] - (Follow up within 1-2 weeks -please call to schedule an appointment.) Diet: Heart Healthy Addtl Provider Instructions: You were admitted with nausea, vomiting, and found to have low sodium levels due to dehydration. Your sodium levels improved with hydrating you with IV fluids. Your nausea improve with receiving anti-nausea medications. Given your history of migraine headaches, it is possible that these recurrent episodes of nausea/vomiting, and headache are a migraine headache. You had a CT scan of your head here that was normal. You will be prescribed metoclopramide (Reglan) to take along with Benadryl whenever you feel one of these episodes coming on again to try to abort the migraine headache. Please follow up with your PCP within 1-2 weeks. Prescriptions: New metoclopramide HCl 10 mg tablet 10 mg PO Q6H PRN (Reason: migraine headache) Qty: 10 RF: 0 diphenhydramine HCl [Benadryl Allergy] 25 mg tablet 25 mg PO Q6H PRN (Reason: migraine headache) Qty: 30 RF: 0 Continue pantoprazole 40 mg Tablet,Delayed Release (Dr/Ec) 40 mg PO DAILY RF: 0 simvastatin 20 mg tablet 20 mg PO DAILY RF: 0 albuterol sulfate 90 mcg/actuation Hfa Aerosol Inhaler 2 puff INHALATION Q6H PRN (Reason: Shortness Of Breath) RF: 0 fluticasone 50 mcg/actuation spray,suspension 2 spray Intranasal DAILY RF: 0 irbesartan 300 mg tablet 300 mg PO DAILY RF: 0 mometasone [Asmanex Twisthaler] 110 mcg (30 doses) Aerosol Powdr Breath Activated 1 inh INHALATION QPM RF: 0 Stand-Alone Forms: [facility] Discharge Orders: Discharge Order (Routine); Ordered 06/14/18 Ordered By: Rosario Parker Admission Data Admit Date/Time: 06/14/18 02:18 Attending Provider: Rosario Parker Admit Provider: Chirag Melton Primary Care Provider: Nevin Rajput Other Providers: Chirag Melton Service: Medical Other Interventions: Discharge Summary Assessment (RN) Last Done: 06/14/18 17:01 Pending Studies at Discharge: No DC Date/Time DO NOT enter until pt leaves facility: 06/14/18 17:59
[2018-06-14] MEDS ORDERED: MOMETASONE FUROATE 14 PUFF/1 INHALER INH SCH (21:00)
--- NOTE | 2018-06-15 11:12 | Emergency Department Note ---
Entered by Naa Antonio acting as a scribe for Remberto Monroe MD History of Present Illness General Chief complaint: Nausea Stated complaint: NAUSEA,DIZZY,VOMITING,DIARRHEA Time Seen by Provider: 06/13/18 20:42 Source: patient History of Present Illness Onset (ago): hour(s) (several) Location: abdomen Severity: similar to prior episodes Pain Consistency: + other (persistent ) Maximum Pain Intensity: 0 Quality: + other (vomiting) Associated symptoms: + nausea/vomiting and + other (positive diarrhea; positive dizziness); no headaches The patient is a 72 year old female who presents to the Emergency Room with complaints of persistent vomiting that began several hours prior to arrival. The patient states that she has had diarrhea, nausea, and dizziness all day today. The patient states that this is similar to prior episodes. The patient denies headaches. Home Medications Home Medications Medication Instructions Recorded Confirmed Type albuterol sulfate 2 puff INHALATION Q6H PRN 06/13/18 06/13/18 History fluticasone 2 spray INTRANASAL DAILY 06/13/18 06/13/18 History irbesartan 300 mg PO DAILY 06/13/18 06/13/18 History mometasone [Asmanex Twisthaler] 1 inh INHALATION QPM 06/13/18 06/13/18 History pantoprazole 40 mg PO DAILY 06/13/18 06/13/18 History simvastatin 20 mg PO DAILY 06/13/18 06/13/18 History diphenhydramine HCl [Benadryl 25 mg PO Q6H PRN #30 tab 06/14/18 Rx Allergy] metoclopramide HCl 10 mg PO Q6H PRN #10 tab 06/14/18 Rx Allergies Allergy/AdvReac Type Severity Reaction Status Date / Time amoxicillin Allergy Unknown Rash Verified 06/13/18 20:50 clavulanic acid Allergy Unknown Rash Verified 06/13/18 20:50 Past Med/Surg History Medical History Hyperlipidemia Asthma Migraine Hypertension (Chronic) Social History Current Living Situation: Spouse Other Information That Helps Us Care for You: No Feels Safe at Home: Yes Safety Concerns: Feels Safe At This Time Smoking Status: Unknown if ever smoked Hx Alcohol Use: Yes Alcohol type: wine Alcohol Intake Frequency: holidays/ special occasions only Hx Substance Use: No Beliefs That Will Affect Care: None Preferred Language: Welsh Review of Systems See HPI for pertinent positives & negatives. and A total of 10 systems reviewed and were otherwise negative Physical Exam Vital Signs Vital Signs - 24 hr 06/14/18 15:00 06/14/18 17:01 Temperature 36.8 C 36.8 C Temperature Source Oral Pulse Rate [Right Finger] 75 75 Respiratory Rate 18 18 Blood Pressure [Left Arm] 144/83 H 144/83 H Blood Pressure Mean [Left Arm] 103 Pulse Oximetry 99 99 Oxygen Delivery Method Room Air GENERAL: Awake, alert, well-appearing, in no distress HENT: Normocephalic, atraumatic. Oropharynx unremarkable. EYES: Normal conjunctiva. Sclera non-icteric. NECK: Supple. No nuchal rigidity. FROM. No masses. RESPIRATORY: Clear to auscultation. No wheezes. No rales. Normal respiratory effort. CARDIAC: Normal rate. Normal rhythm. No murmurs. No rubs. Extremities warm and well perfused. Pulses equal. No JVD. GI: Soft, non-distended. No tenderness to palpation. No rebound or guarding. No masses. RECTAL: Deferred. MUSCULOSKELETAL: Atraumatic. Chest examination reveals no tenderness. The back is symmetrical on inspection without obvious abnormality. There is no CVA tenderness to palpation. No joint edema. LOWER EXTREMITIES: Calves are equal size bilaterally and non-tender. No edema. No discoloration. NEURO: Normal sensorium. No sensory or motor deficits noted. SKIN: No rash or jaundice noted. Course 2041: Past medical records reviewed. The patient was evaluated in room C9, and a complete history and physical examination were performed. 2121: I checked on the patient and updated her on the results so far. 2313: I discussed the case with Dr. Eli [facility] who will further evaluate the patient. Consultations Consultation #1: I discussed the case with Dr. Eli Gordon who will further evaluate the patient. Time: 23:13 Administered Medications Discontinued Medications Diphenhydramine HCl (Benadryl) 25 mg IV NOW STA Stop: 06/13/18 21:31 Last Admin: 06/13/18 22:18 Dose: 25 mg Sodium Chloride (Nss) 500 mls @ 999 mls/hr IV .Q31M STA Stop: 06/13/18 21:11 Last Admin: 06/13/18 20:50 Dose: Not Given Sodium Chloride (Nss 1000ml) 1,000 mls @ 999 mls/hr IV .Q1H1M ONE Stop: 06/13/18 21:46 Last Infusion: 06/13/18 22:00 Dose: Admin: 06/13/18 20:50 Dose: 999 mls/hr Potassium Chloride (K José Luis / Wtr) 10 meq in 100 mls @ 100 mls/hr IV Q1H LISSETH Stop: 06/13/18 22:59 Last Admin: 06/13/18 22:19 Dose: 100 mls/hr Infusion: 06/13/18 22:05 Dose: Admin: 06/13/18 21:03 Dose: 100 mls/hr Prochlorperazine 5 mg/ Syringe 5 mls @ 5 mls/min IV ONE ONE Stop: 06/13/18 21:31 Last Admin: 06/13/18 22:18 Dose: 5 mls/min Potassium Chloride/Dextrose/Sod Cl (D5nss + 20meq Kcl) 20 meq in 1,000 mls @ 125 mls/hr IV .Q8H LISSETH Stop: 06/14/18 19:29 Last Admin: 06/14/18 11:49 Dose: 125 mls/hr Infusion: 06/14/18 11:49 Dose: 125 mls/hr Admin: 06/14/18 04:43 Dose: 125 mls/hr Magnesium Sulfate/Dextrose (Magnesium Sulfate / D5w) 1 gm in 100 mls @ 100 mls/ hr IV ONE ONE Stop: 06/14/18 04:29 Last Infusion: 06/14/18 05:50 Dose: 0 mls/hr Admin: 06/14/18 04:42 Dose: 100 mls/hr Irbesartan (Avapro) 300 mg PO DAILY LISSETH Stop: 07/14/18 08:59 Last Admin: 06/14/18 08:23 Dose: 300 mg Ketorolac Tromethamine (Toradol) 15 mg IV NOW STA Stop: 06/13/18 20:47 Last Admin: 06/13/18 20:49 Dose: 15 mg Ketorolac Tromethamine (Toradol) Confirm Administered Dose 15 mg .ROUTE .STK- MED ONE Stop: 06/13/18 20:47 Last Admin: 06/13/18 20:50 Dose: Not Given Methylprednisolone (Solumedrol) 125 mg IV NOW STA Stop: 06/13/18 22:53 Last Admin: 06/13/18 23:03 Dose: 125 mg Metoclopramide HCl (Reglan) 10 mg IV NOW STA Stop: 06/13/18 20:58 Last Admin: 06/13/18 21:04 Dose: 10 mg Ondansetron HCl (Zofran) 4 mg IV NOW STA Stop: 06/13/18 20:42 Last Admin: 06/13/18 20:50 Dose: 4 mg Ondansetron HCl (Zofran Odt 4mg Home Pack) 1 homepack PO NOW ONE Stop: 06/13/18 22:39 Last Admin: 06/13/18 23:10 Dose: Not Given Pantoprazole Sodium (Protonix) 40 mg PO DAILY LISSETH Stop: 07/14/18 08:59 Last Admin: 06/14/18 08:23 Dose: 40 mg Potassium Chloride (Klor-Con M20) 40 meq PO NOW STA Stop: 06/13/18 20:58 Last Admin: 06/13/18 22:39 Dose: 40 meq Prochlorperazine (Compazine) Confirm Administered Dose 10 mg .ROUTE .STK-MED ONE Stop: 06/13/18 22:14 Last Admin: 06/13/18 22:28 Dose: Not Given Simvastatin (Zocor) 20 mg PO DAILY LISSETH Stop: 07/14/18 08:59 Last Admin: 06/14/18 08:24 Dose: 20 mg Medical Decision Making Differential Diagnosis Differential diagnosis: Etiologies such as biliary colic, cholecystitis, hepatitis, perihepatitis, pancreatitis, cardiac disease, pancreatitis, gastritis, peptic ulcer disease, appendicitis, ovarian cyst, ovarian torsion, ectopic , pelvic inflammatory disease, cystitis, diverticulitis, mesenteric ischemia, inflammatory bowel disease, ileus, bowel obstruction, aortic pathology, shingles , as well as others were considered. Medical Records Attestation: I reviewed the patient's medical records. Home Medications Current Medication List: was personally reviewed by me Laboratory Data Attestation: I reviewed the patient's lab results. Result diagrams: 06/14/18 06:46 06/14/18 06:46 Lab Results 06/13/18 06/13/18 06/14/18 Range/Units 20:25 20:25 06:46 WBC 9.98 4.95 D (4.8-10.8) K/uL RBC 4.49 4.39 (4.2-5.4) M/uL Hgb 14.5 14.0 (12.0-16.0) g/dL Hct 41.1 40.4 (37-47) % MCV 91.5 92.0 (80-100) fL MCH 32.3 31.9 (25-34) pg MCHC 35.3 34.7 (32-36) g/dL RDW Std Deviation 41.4 41.0 (36.4-46.3) fL RDW Coeff of Jack 12.3 12.1 (11.5-14.5) % Plt Count 273 254 (130-400) K/uL MPV 10.5 H 10.3 (7.4-10.4) fL Immature Gran % (Auto) 0.3 0.2 % Neut % (Auto) 70.1 86.7 % Lymph % (Auto) 21.8 12.5 % [place] % (Auto) 7.1 0.4 % Eos % (Auto) 0.5 0.0 % Baso % (Auto) 0.2 0.2 % Immature Gran # (Auto) 0.03 H 0.01 (0.00-0.02) K/uL Neut # (Auto) 6.99 H 4.29 (1.4-6.5) K/uL Lymph # (Auto) 2.18 0.62 L (1.2-3.4) K/uL [place] # (Auto) 0.71 H 0.02 L (0.11-0.59) K/uL Eos # (Auto) 0.05 0.00 (0-0.5) K/uL Baso # (Auto) 0.02 0.01 (0-0.2) K/uL Sodium 129 L (136-145) mmol/L Potassium 3.2 L (3.5-5.1) mmol/L Chloride 96 L (98-107) mmol/L Carbon Dioxide 22 (21-32) mmol/L Anion Gap 10.0 (3-11) BUN 21 H (7-18) mg/dl Creatinine 0.80 (0.6-1.2) mg/dl Est Cr Clr Drug Dosing Not Reportable Est GFR ( Amer) 86.0 Est GFR (Non-Af Amer) 74.2 BUN/Creatinine Ratio 26.8 H (10-20) Glucose 134 H (70-99) mg/dl Calcium 9.3 (8.5-10.1) mg/dl Magnesium (1.8-2.4) mg/dl Total Bilirubin 0.9 (0.2-1) mg/dl AST 10 L (15-37) U/L ALT 21 (12-78) U/L Alkaline Phosphatase 76 (45-117) U/L Total Protein 7.6 (6.4-8.2) gm/dl Albumin 4.2 (3.4-5.0) gm/dl Globulin 3.4 (2.5-4.0) gm/dl Albumin/Globulin Ratio 1.2 (0.9-2) Lipase 197 (73-393) U/L 06/14/18 Range/Units 06:46 WBC (4.8-10.8) K/uL RBC (4.2-5.4) M/uL Hgb (12.0-16.0) g/dL Hct (37-47) % MCV (80-100) fL MCH (25-34) pg MCHC (32-36) g/dL RDW Std Deviation (36.4-46.3) fL RDW Coeff of Jack (11.5-14.5) % Plt Count (130-400) K/uL MPV (7.4-10.4) fL Immature Gran % (Auto) % Neut % (Auto) % Lymph % (Auto) % [place] % (Auto) % Eos % (Auto) % Baso % (Auto) % Immature Gran # (Auto) (0.00-0.02) K/uL Neut # (Auto) (1.4-6.5) K/uL Lymph # (Auto) (1.2-3.4) K/uL [place] # (Auto) (0.11-0.59) K/uL Eos # (Auto) (0-0.5) K/uL Baso # (Auto) (0-0.2) K/uL Sodium 135 L (136-145) mmol/L Potassium 4.5 D (3.5-5.1) mmol/L Chloride 107 (98-107) mmol/L Carbon Dioxide 19 L (21-32) mmol/L Anion Gap 9.0 (3-11) BUN 12 (7-18) mg/dl Creatinine 0.73 (0.6-1.2) mg/dl Est Cr Clr Drug Dosing 53.3 Est GFR ( Amer) 96.0 Est GFR (Non-Af Amer) 82.9 BUN/Creatinine Ratio 16.2 (10-20) Glucose 215 H (70-99) mg/dl Calcium 8.3 L (8.5-10.1) mg/dl Magnesium 2.5 H (1.8-2.4) mg/dl Total Bilirubin (0.2-1) mg/dl AST (15-37) U/L ALT (12-78) U/L Alkaline Phosphatase (45-117) U/L Total Protein (6.4-8.2) gm/dl Albumin (3.4-5.0) gm/dl Globulin (2.5-4.0) gm/dl Albumin/Globulin Ratio (0.9-2) Lipase (73-393) U/L Imaging Data Radiologist's Impression: Radiology results as stated below per my review and the radiologist's interpretation: CT head/brain wo con CLINICAL HISTORY: 72 years-old Female presenting with Pt c/o diffuse emesis. TECHNIQUE: Multidetector CT imaging of the head was performed without the use of intravenous contrast. IV contrast: None. A dose lowering technique was used consistent with the principles of ALARA (as low as reasonably achievable). COMPARISON: 07/01/2017. CT DOSE (mGy.cm): The estimated cumulative dose is 537.48 mGy.cm. FINDINGS: Hospital Medicine Director topogram: Unremarkable. Ventricles and sulci normal in size. No hemorrhage. Brain parenchyma normal in appearance with preserved [place] differentiation. No acute territorial infarct. No mass effect or midline shift. No extra-axial fluid collection. Paranasal sinuses and mastoid air cells clear. Calvarium intact. IMPRESSION: 1. No acute intracranial abnormality. Electronically signed by: Jhoan Gerard M.D. 06/13/2018 9:41 PM XR abdomen 2V w PA chest CLINICAL HISTORY: 72 years-old Female presenting with Pt c/o diffuse emesis. TECHNIQUE: PA view of the chest and supine and upright views of the abdomen were obtained. COMPARISON: Chest x-ray from 07/01/2017. FINDINGS: Atherosclerosis of the aortic arch. Cardiac silhouette top normal in size. Minimal basilar opacities. No pleural effusion or pneumothorax. Cholecystectomy clips noted. Nonobstructive bowel gas pattern. No gross pneumoperitoneum. Allowing for bowel gas and stool, no calcifications to suggest nephrolithiasis. Degenerative changes of the spine. IMPRESSION: 1. Minimal basilar opacities likely atelectasis. No convincing evidence of acute cardiopulmonary disease. 2. No radiographic evidence of acute intra-abdominal pathology. Electronically signed by: Jhoan Gerard M.D. 06/13/2018 10:21 PM Blood Pressure Blood Pressure Findings: Elevated blood pressure Blood Pressure Disposition: further management by hospitalist [facility] Narrative This is a 72-year-old female who presents the emergency department with acute vomiting that is intractable. Patient was also found to be hyponatremic and hypokalemic on laboratory work. Patient presents during a period of high volume and high acuity with low provider coverage. An IV was established, the patient given normal saline, Zofran, Reglan, Benadryl, Compazine repeat examination revealed the patient to still be dry heaving. I attempted to replete the patient's potassium via IV and oral needs however she was unable to keep the oral potassium down. For this reason I did discuss the case with the hospitalist service who agreed to admit the patient. Patient was in agreement with the treatment plan. Impression & Plan Gastroenteritis, Acute hypokalemia Discharge Plan Visit Data *Final* Discharge Date/Time: 06/14/18 02:31 Chief Complaint: Nausea Stated Complaint: NAUSEA,DIZZY,VOMITING,DIARRHEA ED Provider: Remberto Monroe Discharge Problem: Gastroenteritis, Acute hypokalemia Patient Disposition: Admitted As Inpatient Condition: Good Discharge Instructions Interventions: ED Discharge Assessment Last Done: 06/14/18 02:31 The scribe's documentation has been prepared under my direction and personally reviewed by me in its entirety. I confirm that the note above accurately reflects all work, treatment, procedures, and medical decision making performed by me.
== END 2018-06-14 17:59 | disposition home or self-care (01) ==
LOC: ED 20:07 → 2N 20:07 → SUATTDRO 06-14 02:18 → 2N 06-14 02:31
DX: R42 Dizziness and giddiness; E78.5 Hyperlipidemia, unspecified; E86.0 Dehydration; I10 Essential (primary) hypertension; R19.7 Diarrhea, unspecified; J45.909 Unspecified asthma, uncomplicated; R11.2 Nausea with vomiting, unspecified; E87.1 Hypo-osmolality and hyponatremia